=== PATIENT | female | born 1960 | race Caucasian/White ===

== ENCOUNTER 2021-03-11 21:59 | Emergency (ER) | payer OTHER ==
[2021-03-11 23:16] LABS: HEMOGLOBIN 11.7 gm/dl (12.3-15.3); RED BLOOD COUNT 3.1 M/UL (4.00-5.10); WHITE BLOOD COUNT 7.3 K/UL (4.5-11.0)
[2021-03-12] MEDS ORDERED: FUROSEMIDE20 MG PO (03:21)
[2021-03-12] MEDS ORDERED: ATIVAN1 MG PO (03:21)
[2021-03-12] MEDS ORDERED: SPIRONOLACTONE25 MG PO (03:21)
[2021-03-13 10:12] LABS: HBSAG SCREEN Negative (Negative); HEP A AB, IGM Negative (Negative); HEP B CORE AB, IGM Negative (Negative); HEP C VIRUS AB >11.0 (0.0-0.9)
== END 2021-03-12 03:51 | disposition home or self-care (01) ==
LOC: ER1 21:59
PROVIDERS: Physician Assistant Medical
DX: E11.65 Type 2 diabetes mellitus with hyperglycemia (principal); R60.0 Localized edema; K74.60 Unspecified cirrhosis of liver; D75.839 Thrombocytosis, unspecified; D64.9 Anemia, unspecified; F10.239 Alcohol dependence with withdrawal, unspecified; F17.200 Nicotine dependence, unspecified, uncomplicated; Z90.49 Acquired absence of other specified parts of digestive tract
CPT/HCPCS: 71045; 80053; 80074; 80307; 81001; 82009; 82140; 83880; 85025; 85610; 99285; G0480; Q9967